=== PATIENT | male | born 1960 | race Caucasian/White ===

== ENCOUNTER 2024-07-26 00:52 | Observation (INO) ==
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
[2024-07-26 02:18] LABS: Basophils #(Absolute) Auto 0.1 (0.0-0.1); Basophils%(Percent) Auto 0.6 (0.0-1.3); Eosinophils#(Absolute)Auto 0.2 (0.0-0.3); Eosinophils%(Percent) Auto 2.2 % (0.0-4.0); Granulocytes % - Auto 69.5 % (49.1-73.1); Granulocytes#(Absolute)- Auto 6.3 (2.0-6.2); Mean Corpuscular Volume 83.8 fl (81.9-96.5); Monocytes #(Absolute)- Auto 0.8 (0.2-0.8); Monocytes %(Percent)- Auto 8.5 % (4.5-10.7); Platelet Count 193 K/uL (142-355); White Blood Count 9.1 K/uL (3.7-9.6)
[2024-07-26 02:21] LABS: Potassium 4.2 mmol/L (3.6-5.2)
[2024-07-26] MEDS: 0.9 % SODIUM CHLORIDE 500 ML IV ONE (08:00)
[2024-07-26] MEDS ORDERED: 0.9 % SODIUM CHLORIDE 1000 ML 0 ML IV ONE (08:46)
[2024-07-26] MEDS ORDERED: 0.9 % SODIUM CHLORIDE 500 ML IV ONE (08:47)
[2024-07-26] MEDS: ASPIRIN 81 MG TABLET.DR PO SCH (14:22)
[2024-07-26] MEDS: EMPAGLIFLOZIN 10 MG TABLET PO SCH (14:22)
[2024-07-26] MEDS: GABAPENTIN 100 MG CAPSULE PO SCH ×2 (14:23→20:36)
[2024-07-26] MEDS: LITHIUM CARBONATE 150 MG CAPSULE PO SCH (14:24)
[2024-07-26] MEDS: INSULIN GLARGINE U SUBQ SCH (14:24)
[2024-07-26] MEDS: LEVOTHYROXINE SODIUM 88 MCG TABLET PO SCH (14:24)
[2024-07-26] MEDS: QUETIAPINE FUMARATE 100 MG TABLET PO SCH (14:25)
[2024-07-26] MEDS: METOPROLOL SUCCINATE 25 MG TAB.ER.24H PO SCH (14:25)
[2024-07-26] MEDS: VENLAFAXINE HCL 150 MG CAP.ER PO SCH (14:28)
[2024-07-26] MEDS ORDERED: ACETAMINOPHEN 500 MG TABLET PO PRN (15:00)
[2024-07-26] MEDS ORDERED: MAGNESIUM, ALUMINUM HYDROXIDE 30 ML ORAL.SUSP PO PRN (15:00)
[2024-07-26] MEDS ORDERED: bisacodyL 10 MG SUPP.RECT PR PRN (15:00)
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
[2024-07-26] MEDS ORDERED: TRAMADOL HCL 50 MG TABLET PO PRN (16:41)
[2024-07-26] MEDS: GLIMEPIRIDE 2 MG TABLET PO SCH (17:44)
[2024-07-26] MEDS: 0.9 % SODIUM CHLORIDE 1000 ML 1,000 ML IV SCH (17:44)
[2024-07-26] MEDS: NON-FORMULARY MEDICATION 1 EACH (Rosuvastatin 20 mg tablet) PO SCH (19:29)
[2024-07-26] MEDS: AMLODIPINE BESYLATE 5 MG TABLET PO SCH (20:36)
[2024-07-26] MEDS: clonazePAM 1 MG TABLET PO SCH (20:36)
[2024-07-26] MEDS: ATORVASTATIN CALCIUM 40 MG TABLET PO SCH (20:36)
[2024-07-27 04:53] LABS: Basophils%(Percent) Auto 0.1 (0.0-1.3); Eosinophils#(Absolute)Auto 0.2 (0.0-0.3); Eosinophils%(Percent) Auto 1.6 % (0.0-4.0); Granulocytes % - Auto 70.8 % (49.1-73.1); Hematocrit 34.3 % (41.3-50.1); Mean Corpuscular Volume 83.7 fl (81.9-96.5); Monocytes #(Absolute)- Auto 0.8 (0.2-0.8); Monocytes %(Percent)- Auto 7.7 % (4.5-10.7); Platelet Count 195 K/uL (142-355); White Blood Count 9.9 K/uL (3.7-9.6)
[2024-07-27 06:08] LABS: Potassium 4.1 mmol/L (3.6-5.2)
[2024-07-27] MEDS: LEVOTHYROXINE SODIUM 88 MCG TABLET PO SCH (08:19)
[2024-07-27 08:43] VITALS: BP 142/67; PULSE 75; RESP 20; TEMP 97.6
[2024-07-27] MEDS: INSULIN GLARGINE-YFGN 100 UNIT/ML INSULN.PEN SUBQ SCH (08:58)
[2024-07-27] MEDS: LOSARTAN POTASSIUM 50 MG TABLET PO SCH (08:59)
[2024-07-27] MEDS ORDERED: INSULIN DEGLUDEC 200 UNIT/ML SUBQ SCH (09:00)
[2024-07-27] MEDS ORDERED: [UNRECOGNIZED DRUG - OTHER] SUBQ SCH (09:00)
--- NOTE | 2024-07-27 11:56 | Discharge Summary ---
DS: Providers Provider Date of admission: 07/26/24 06:35 Primary care physician: Maximiliano Van Admitting clinician: Rossana Barfield Attending physician on admission: Eli Ott Attending physician on discharge: Eduar Suarez Discharging clinician: Eduar Suarez Anticipated date of discharge: 07/27/24 DS: Diagnosis Discharge Diagnosis (1) Acute kidney injury superimposed on stage 3b chronic kidney disease: Assessment and plan: improving (2) Dehydration symptoms: Assessment and plan: resolving (3) Syncope: Assessment and plan: resolved Qualifiers: Syncope type: unspecified Qualified Code(s): R55 - Syncope and collapse (4) Falls frequently: Assessment and plan: resolved (5) Hypertension: Assessment and plan: stable Qualifiers: Hypertension type: primary hypertension Qualified Code(s): I10 - Essential (primary) hypertension (6) Patient's noncompliance with other medical treatment and regimen for other reason: Assessment and plan: chronic (7) Physical debility: Assessment and plan: chronic (8) Anemia: Assessment and plan: chronic Qualifiers: Anemia type: unspecified type Qualified Code(s): D64.9 - Anemia, unspecified (9) Azotemia: Assessment and plan: resolving (10) Diabetes: Assessment and plan: chronic Qualifiers: Diabetes mellitus complication detail: with other circulatory complications Diabetes mellitus complication status: with circulatory complication Diabetes mellitus fdc insulin use: without fdc use Diabetes mellitus type: type 2 Qualified Code(s): E11.59 - Type 2 diabetes mellitus with other circulatory complications (11) Hypoalbuminemia: Assessment and plan: chronic (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 (13) Bipolar disorder: Assessment and plan: stable Qualifiers: Active/Remission status: currently active Current bipolar episode type: mixed Current episode severity: moderate Qualified Code(s): F31.62 - Bipolar disorder, current episode mixed, moderate (14) Vascular dementia: Assessment and plan: stable Qualifiers: Dementia behavioral or psychological symptom: without behavioral, psychotic, or mood disturbance or anxiety Dementia severity: unspecified severity Qualified Code(s): F01.50 - Vascular dementia, unspecified severity, without behavioral disturbance, psychotic disturbance, mood disturbance, and anxiety (15) Self-care deficit: Assessment and plan: chronic (16) Sleep apnea in adult: Assessment and plan: stable (17) Metabolic syndrome: Assessment and plan: chronic Plan Discharge home with instructions to increase H2O intake. DS: Summary Hospital Course Hospital Course: Responded well to IVFs with improving kidney function and ability to ambulate around room without difficulty. Pt requesting to go home and feels safe to do so. He is tolerating PO intake and does not live alone. Status at Discharge Functional status at discharge: independent ambulation Overall status at discharge: patient is progressing back to baseline Time Spent with Patient Time attestation: Total time spent providing and/or coordinating discharge services: Time spent: less than 30 minutes Exam Constitutional: normal general appearance, no apparent distress, abnormal body habitus (obese), no limitations and alert Vital Signs - 24 hr 07/26/24 12:09 07/26/24 12:09 07/26/24 13:56 Temperature 98.4 F 98.0 F Pulse Rate Pulse Rate [Bilate ral Dorsalis Pedis ] Pulse Rate [Right Radial] 71 72 68 Pulse Rate [orthos tatic lying] Respiratory Rate 18 18 20 Blood Pressure Blood Pressure [Le ft Arm] 172/65 170/70 Blood Pressure [or thostatic lying] Blood Pressure [or thostatic sitting] Blood Pressure [or thostatic standing ] Pulse Oximetry 98 98 96 Oxygen Delivery Me thod Room Air Room Air Room Air 07/26/24 15:59 07/26/24 17:24 07/26/24 17:27 Temperature 98.0 F Pulse Rate 67 Pulse Rate [Bilate ral Dorsalis Pedis ] Pulse Rate [Right Radial] Pulse Rate [orthos tatic lying] 74 72 Respiratory Rate 20 Blood Pressure 171/78 Blood Pressure [Le ft Arm] Blood Pressure [or thostatic lying] 138/65 Blood Pressure [or thostatic sitting] 114/55 Blood Pressure [or thostatic standing ] Pulse Oximetry 96 Oxygen Delivery Me thod 07/26/24 17:29 07/26/24 20:00 07/26/24 23:38 Temperature 97.8 F 97.9 F Pulse Rate Pulse Rate [Bilate ral Dorsalis Pedis ] 75 Pulse Rate [Right Radial] 86 Pulse Rate [orthos tatic lying] 78 Respiratory Rate 20 21 Blood Pressure Blood Pressure [Le ft Arm] 147/68 132/68 Blood Pressure [or thostatic lying] Blood Pressure [or thostatic sitting] Blood Pressure [or thostatic standing ] 104/53 Pulse Oximetry 98 97 Oxygen Delivery Me thod Room Air Room Air 07/27/24 06:13 07/27/24 08:42 07/27/24 08:59 Temperature 97.7 F 97.6 F Pulse Rate Pulse Rate [Bilate ral Dorsalis Pedis ] 77 75 Pulse Rate [Right Radial] Pulse Rate [orthos tatic lying] Respiratory Rate 16 20 Blood Pressure 142/67 Blood Pressure [Le ft Arm] 148/62 142/67 Blood Pressure [or thostatic lying] Blood Pressure [or thostatic sitting] Blood Pressure [or thostatic standing ] Pulse Oximetry 97 97 Oxygen Delivery Nh thod Room Air HENMT: normocephalic, head/scalp atraumatic, hearing grossly normal bila terally and external ears normal Eyes: PERRL, EOMs intact bilaterally and conjunctivae normal Neck/C-Spine: visual inspection normal and trachea midline Respiratory: breath sounds equal bilaterally, normal respiratory effort and clear to auscultation bilaterally Cardiovascular: normal heart rate noted, regular rhythm noted and no murmur Gastrointestinal: abdomen soft to palpation, nontender to palpation, nondistended and normoactive bowel sounds Back/Pelvis: thoracic spine ROM normal and lumbar spine ROM normal Extremities: normal to inspection, normal to palpation, no tenderness and full ROM 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: 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, gait normal, speech normal, coordination normal and no fasciculations noted Psychiatry: mental status grossly normal, oriented x3, thought process normal, cooperative, affect normal, psychomotor activity normal and memory normal DS: Data Data Completed and Pending Labs on day of discharge: Labs from last 24 hours 07/27/24 07/26/24 07/26/24 05:00 17:00 00:40 WBC 9.9 H RBC 4.1 L Hgb 11.5 L Hct 34.3 L MCV 83.7 MCH 28.2 MCHC 33.7 RDW 15.3 H Plt Count 195 MPV 7.4 Gran % 70.8 Lymph % (Auto) 19.8 [place] % (Auto) 7.7 Eos % (Auto) 1.6 Baso % (Auto) 0.1 Lymph # (Auto) 2.0 [place] # (Auto) 0.8 Eos # (Auto) 0.2 Baso # (Auto) 0.0 Absolute Gran (auto) 7.0 H Sodium 144 Potassium 4.1 Chloride 108.0 H Carbon Dioxide 29 Anion Gap 7.0 BUN 23 H Creatinine 1.7 H Estimated GFR 45.0 Glucose 76 Calcium 8.3 L Phosphorus 4.0 Magnesium 2.0 Total Bilirubin 0.34 AST 10 L ALT 14 L Alkaline Phosphatase 95 Total Creatine Kinase 53 53 Troponin I High Sens 15.30 12.60 17.30 B-Natriuretic Peptide 29.8 Total Protein 6.4 Albumin 2.9 L TSH 2.49 Discharge Plan Discharge Disposition: Home, Self-Care Condition: Stable Discharge Medications: Continued quetiapine 200 mg tablet 200 mg PO BID venlafaxine 150 mg capsule,extended release 24hr 150 mg PO DAILY lithium carbonate 150 mg capsule 150 mg PO BID levothyroxine 88 mcg tablet 88 mcg PO DAILY trazodone 150 mg tablet 150 mg PO BEDTIME gabapentin 100 mg capsule 100 mg PO BID metoprolol succinate 25 mg tablet extended release 24 hr 25 mg PO DAILY rosuvastatin 20 mg tablet 20 mg PO QPM dapagliflozin propanediol [Farxiga] 10 mg tablet 10 mg PO DAILY glimepiride 4 mg tablet 2 mg PO QAM Rx Instructions: administer with breakfast cholecalciferol (vitamin D3) 125 mcg (5,000 unit) capsule 125 mcg PO DAILY aspirin 81 mg tablet,delayed release (DR/EC) 81 mg PO DAILY cephalexin 500 mg capsule 500 mg PO Q12H Patient Comments: x 10 days, started on 07/25/24 clonazepam 2 mg tablet 2 mg PO BEDTIME Patient Comments: TAKE ONE TABLET BY MOUTH EVERY EVENING losartan 25 mg tablet 25 mg PO BID Patient Comments: TAKE ONE TABLET BY MOUTH TWICE DAILY furosemide 20 mg tablet 20 mg PO DAILY hydrochlorothiazide 12.5 mg tablet 12.5 mg PO DAILY PRN (Reason: swelling) Patient Comments: TAKE ONE TABLET BY MOUTH DAILY NEEDED insulin degludec [Tresiba FlexTouch U-200] 200 unit/mL (3 mL) insulin pen 45 unit SUBCUT DAILY Patient Comments: INJECT 45 UNITS SUBCUTANEOUSLY DAILY Ozempic 0.25 mg or 0.5 mg (2 mg/3 mL) pen injector 0.5 mg SUBCUT QWEEK Patient Comments: INJECT 0.5MG SUBCUTANEOUSLY EVERY WEEK tramadol 50 mg tablet 50 mg PO QID PRN (Reason: pain) Patient Comments: TAKE ONE TABLET BY MOUTH FOUR TIMES DAILY NEEDED FOR PAIN Discharge Orders: Discharge Order (Routine); Ordered 07/27/24 Ordered By: Eduar Suarez Activity: increase activity as tolerated Diet: diabetic diet Interventions: Discharge Assessment Last Done: 07/27/24 12:15 MED/SURG & ICU Observation Charge Sheet Last Done: 07/27/24 12:18 Patient Instructions: Syncope (DC), Diabetes and Nutrition (DC), Diabetes and Exercise (DC) Activity Restrictions/Additional Instructions: KEEP A LOG OF BLOOD SUGARS BEFORE MEALS AND AT BEDTIME KEEP A FOOD LOG START AND MAINTAIN A DIABETIC DIET INCREASE WATER INTAKE INCREASE EXERCISE NO SITTING FOR LONG PERIODS OF TIME CONTINUE TAKING HOME MEDICATIONS DIRECTED DON'T TAKE BLOOD SUGAR MEDICATIONS IF BLOOD SUGAR IS LESS THAN 120, MAKE TAKE LATER IF BLOOD SUGAR INCREASES Forms: Portal/Health Info Access Inst Follow-Ups: Maximiliano Van [Primary Care Provider] -
== END 2024-07-27 13:02 | disposition home or self-care (01) ==
LOC: MS 00:52 → ED 00:52 → EDHOLD 08:50 → MS 15:56
PROVIDERS: ADMIT Nurse Practitioner Family; ATTEND Family Medicine